=== PATIENT | male | born 1995 | race Caucasian/White ===

== ENCOUNTER 2017-07-26 00:26 | Emergency (ER) | payer BC ==
[~2017-07-26] VITALS: Ht 193 cm; Wt 73.5 kg
[2017-07-26 00:32] VITALS: BP 123/75
--- NOTE | 2017-07-26 00:38 | NUR ---
PT. ABULATED TO ER BED 2
--- NOTE | 2017-07-26 00:40 | NUR ---
22/M CAME IN W C/O 09/09 SUBSTERNAL CHEST PAIN, "BURNING", NONRADIATING, X YESTERDAY S/P TAKING "ALPHA MALE PILL". PT STATES "30 MINUTES AFTER I TOOK THE PILL, I HAD BURNING SENSATION IN MY CHEST" . DENIES SOB, DENIES N/V, SKIN IS WARM AND DRY. NO RESPIRATORY DISTRESS NOTED AT THIS TIME. 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
[2017-07-26] MEDS ORDERED: LIDOCAINE VISCOUS 2% 20 ML UDC PO ONE (01:30)
[2017-07-26] MEDS ORDERED: DICYCLOMINE HCL LIQUID 10 MG/5 ML UDC PO ONE (01:30)
[2017-07-26] MEDS ORDERED: ALUMINUM HYD/MAG/SIMETHICONE 30 ML UDC PO ONE (01:30)
--- NOTE | 2017-07-26 02:21 | NUR ---
Patient discharged with v/s stable. Written and verbal after care instructions given and explained. Patient alert, oriented and verbalized understanding of instructions. Ambulatory with steady gait. All questions addressed prior to discharge. ID band removed. Patient advised to follow up with PMD. Rx of PRILOSEC given. Patient educated on indication of medication including possible reaction and side effects. Opportunity to ask questions provided and answered.
[2017-07-26 02:24] VITALS: BP 119/76
== END 2017-07-26 02:21 | disposition home or self-care (01) ==
LOC: MED 00:26
DX: K20.9 Esophagitis, unspecified (principal)
CPT/HCPCS: 71045; 93005; 99284

== ENCOUNTER 2018-04-06 11:59 | Emergency (ER) | payer BC ==
[~2018-04-06] VITALS: Ht 193 cm; Wt 79.4 kg
[2018-04-06 12:15] VITALS: BP 130/75
--- NOTE | 2018-04-06 12:15 | NUR ---
PT. BIB FRIEND DUE TO RT KNEE PAIN. PT. STATES " I WAS PLAYING BASKETBALL ON FRIDAY AND I THINK I HURT MY KNEE AGAIN , BECAUSE I HYPEREXTENDED IT ON 01/2018 WELL PLAYING BASKETBALL". RT KNEE SWELLING NOTED, NO BRUISING. NO PAIN UPON PALPATION. 8/10 SHARP PAIN WHEN AMBULATING X 2 DAYS. SENSATION INTACT. CAP REFILL LESS THAN 3 SEC. NO DEFORMITY NOTED. ER MD NOTIFIED. WILL CONTINUE TO MONITOR. SAFETY PRECAUTIONS IMPLEMENTED.
--- NOTE | 2018-04-06 12:39 | NUR ---
XRAY AT BEDSIDE
--- NOTE | 2018-04-06 12:45 | NUR ---
XRAY AT BEDSIDE AT THIS TIME.
[2018-04-06 13:42] VITALS: BP 126/72
== END 2018-04-06 13:43 | disposition home or self-care (01) ==
LOC: MED 11:59
DX: S89.91XA Unspecified injury of right lower leg, initial encounter (principal); X58.XXXA Exposure to other specified factors, initial encounter; Y93.67 Activity, basketball; Y92.89 Other specified places as the place of occurrence of the external cause; Y99.8 Other external cause status
CPT/HCPCS: 29505; 73562; 99284; Q0092